=== PATIENT | female | born 1945 | race Two or more races ===

== ENCOUNTER 2017-06-11 18:31 | Emergency (ER) | payer MEDICARE, MEDICAID ==
[~2017-06-11] VITALS: Ht 152.4 cm; Wt 80.3 kg
[~2017-06-11 18:31] MED LIST: HYDR25TA6 PO
[2017-06-11 18:33] VITALS: BP 158/90
[2017-06-11] MEDS ORDERED: LIDOCAINE 1%, 10ML ONE (18:55)
== END 2017-06-11 19:38 | disposition home or self-care (01) ==
LOC: ED 19:25
DX: S61.412A Laceration without foreign body of left hand, initial encounter (principal); W26.0XXA Contact with knife, initial encounter; I10 Essential (primary) hypertension; Y93.89 Activity, other specified; Y92.89 Other specified places as the place of occurrence of the external cause; Y99.8 Other external cause status
CPT/HCPCS: 99283

== ENCOUNTER 2020-12-22 08:27 | Emergency (ER) | payer MEDICAID, MEDICARE ==
[~2020-12-22] VITALS: Ht 152.4 cm; Wt 79.0 kg
--- NOTE | 2020-12-22 09:08 | NUR ---
pt presents to ED with c/o right eye swelling and redness onset yesterday, visual acuity performed in triage. pt has clear drainage, periorbital edema and redness to right sclera. pt a&o, resps even and unlabored, pupils equal, round and reactive. medical student at bedside for assessment.
[2020-12-22] MEDS ORDERED: FLUORESCEIN OPHTHALMIC 1 MG STRIP ONE (09:50)
[2020-12-22] MEDS ORDERED: PROPARACAINE OPHTH 0.5%, 15ML ONE (09:50)
[2020-12-22] MEDS ORDERED: FLUORESCEIN OPHTHALMIC 1 MG STRIP EACHEYE ONE (10:00)
[2020-12-22] MEDS ORDERED: PROPARACAINE OPHTH 0.5%, 15ML EACHEYE ONE (10:00)
--- NOTE | 2020-12-22 10:59 | NUR ---
pt requesting to leave, impatient for eye exam. MD informed. pt educated MD is aware and will perform eye exam as soon as he is available.
[2020-12-22] MEDS ORDERED: LOSA25TA25 PO (11:45)
[2020-12-22 11:50] LABS: BASOPHILS % (AUTO) 1 % (0-1); EOSINOPHILS % (AUTO) 2 % (1-7); LYMPHOCYTES % (AUTO) 32 % (22-44); MEAN CORPUSCULAR HEMOGLOBIN 28.7 pg (27.0-34.8); MEAN CORPUSCULAR HGB CONC 33.9 g/dL (32.4-35.8); MEAN PLATELET VOLUME 7.4 fL (7.4-10.4); MONOCYTES % (AUTO) 6 % (2-9); NEUTROPHILS % (AUTO) 59 % (42-75); PLATELET COUNT 301 x10^3/uL (130-400); RED BLOOD COUNT 4.54 x10^6/uL (3.82-5.3); RED CELL DISTRIBUTION WIDTH 13.7 % (9.6-15.2)
[2020-12-22 12:00] LABS: ANION GAP 6 mmol/L (5-15); CALCIUM 9.2 mg/dL (8.5-10.1); CHLORIDE 106 mmol/L (98-107)
--- NOTE | 2020-12-22 12:55 | NUR ---
called ct to check on status for taking pt, ct states they are on their way to get pt.
--- NOTE | 2020-12-22 13:00 | NUR ---
ct called d/t delay, when tech arrived, pt had pulled out own IV "because it was uncomfortable." pt had been educated regarding reasoning for PIV, pt informed that new PIV would need to be placed for CT scan, pt agrees. pt a&ox4, resps even and unlabored, no complaint. New PIV placed, CT notified.
--- NOTE | 2020-12-22 13:22 | NUR ---
pt in ct
[2020-12-22] MEDS ORDERED: OMNIPAQUE 350 MG/ML, 75ML BOTTLE ONE (13:30)
--- NOTE | 2020-12-22 13:32 | NUR ---
pt back from CT
[2020-12-22 13:43] VITALS: BP 149/89
--- NOTE | 2020-12-22 14:04 | NUR ---
PT EDUCATED ON DISCHARGE, VERBALIZED UNDERSTANDING. PIV REMOVED, PT A&O, RESPS EVEN AND UNLABORED, VSS, NADN. AMBULATORY TO DICHARGE WITH STEADY GAIT.
== END 2020-12-22 14:06 | disposition home or self-care (01) ==
LOC: ED 08:49
DX: H10.021 Other mucopurulent conjunctivitis, right eye (principal); I10 Essential (primary) hypertension
CPT/HCPCS: 36415; 70481; 80048; 85025; 99285; Q9967